=== PATIENT | female | born 1985 | race Caucasian/White ===

== ENCOUNTER 2023-01-30 00:13 | Inpatient (IN) | payer OTHER, SELFPAY ==
[2023-01-29 23:44] VITALS: TEMP 36.7
[2023-01-29 23:45] VITALS: BP 139/87; PULSE 81
[2023-01-29 23:47] VITALS: BMI 39.4
[2023-01-30] VITALS (37 sets, daily range): BP systolic 103–151; BP diastolic 56–85; PULSE 56–96; RESP 16; TEMP 36.2–36.8; O2SAT 96–98
[2023-01-30 00:05] LABS: Color, Urine Yellow (Yellow); Glucose, Dipstick Normal (Normal); Ketone-Dipstick Negative (Negative); Leukocyte Esterase-Dipstick 25 /ul (Negative); Nitrite-Dipstick Negative (Negative); Occult Blood-Urine 250 /ul (Negative); Protein-Dipstick 30 mg/dl (Negative); Urine Bilirubin Dipstick Negative (Negative); Urine Clarity Sl. Cloudy (Clear); Urine Urobilinogen Normal (Normal)
[2023-01-30 00:12] LABS: ROM Internal Control Test YES-OK TO RESULT pt. (Internal QC); ROM Patient Test POSITIVE (Negative); Record Kit Lot#, ROM+ K1374
[2023-01-30 01:17] LABS: Absolute Lymphocyte Count 2.47 X10^3/uL (0.83-4.51); Absolute Neutrophil Count 7.7 X10^3/uL (2.0-7.7); Basophil# 0.03 X10^3/uL; Basophil% 0.3 % (0-1); Eosinophils% 0.9 % (0-5); Hematocrit 38.9 % (37-47); Hemoglobin 12.4 g/dL (12.0-15.0); Lymphocyte # 2.47 X10^3/ul (0.83-4.51); Lymphocyte % 21.8 % (19-41); Mean Corp Hgb Conc 31.9 g/dL (32-36); Mean Corpuscular Hgb 30.5 pg (27.0-32.0); Mean Corpuscular Volume 95.8 fL (81-99); Mean Platelet Vol. 12.9 fl (6.2-12.0); Monocyte# 0.93 X10^3/uL; Monocyte% 8.2 % (0-10); NRBC Flagged by Analyzer 0 % (0-5); Neutrophil # 7.74 X10^3/uL (2.7-7.7); Neutrophil % 68.4 % (47-70); Platelet Count 188 K/mm3 (150-450); RBC Distribution Width CV 14.8 % (11.6-14.6); RBC Distribution Width SD 51.7 fl (35.1-43.9); Red Blood Count 4.06 M/mm3 (4.2-5.4); White Blood Count 11.3 K/mm3 (4.4-11.0)
[2023-01-30 02:12] LABS: Syphilis Antibodies Non-reactive
--- NOTE | 2023-01-30 08:15 | PCM.HP.OB ---
HPI - General General Date of Admission: 01/30/23 HPI Narrative GOPI MAGANA, is a 37 F @ 38.2 weeks who presents with SROM on 01/29/23 at 10pm clear fluid. [facility] Medical History (Updated 01/30/23 @ 08:[address] Gini Franco MD) Vaginal after Home Medications vits,calcium no.78-iron fumarate-folic acid 29 mg-1 mg tablet (Prenatabs FA) 1 tab PO DAILY vitamin 11/02/14 [History Last Taken 04/20/17 19:00 1 tab] sennosides 8.6 mg tablet (Mary-albert) 1 tab PO DAILY stool softener 11/02/14 [History Last Taken 04/20/17 19:00 1 tab] loratadine 10 mg tablet (Claritin) 10 mg PO PRN PRN Allergies 04/21/17 [History Last Taken 04/19/17 12:00 10 mg] omeprazole 20 mg capsule,delayed release 20 mg PO DAILY heartburn 04/21/17 [History Last Taken 04/20/17 19:00 20 mg] Allergy/AdvReac Type Severity Reaction Status Date / Time hydrocodone Allergy Itching Verified 01/30/23 00:50 Surgical History (Updated 01/30/23 @ 08:[address] Gini Franco MD) History of surgery Previous section Social History Smoking Status: Former smoker History Elective abortions Hx Para 2 Spontaneous abortions Hx # Term Pregnancies Ectopic pregnancies Hx # Pregnancies Multiple births # of living children Vital Signs Vital Signs Vital Signs: 01/29/23 23:44 01/29/23 23:45 01/29/23 23:45 Temperature Temperature Source Temporal Pulse Rate 81 Blood Pressure 139/87 H BP Systolic 139 BP Diastolic 87 01/29/23 23:44 01/30/23 01:45 01/30/23 01:45 Temperature 98.1 F 97.4 F L Temperature Source Temporal Pulse Rate Blood Pressure BP Systolic BP Diastolic 01/30/23 02:58 01/30/23 02:58 01/30/23 05:15 Temperature Temperature Source Temporal Pulse Rate 60 Blood Pressure 135/76 H BP Systolic 135 BP Diastolic 76 01/30/23 05:15 01/30/23 06:45 01/30/23 06:45 Temperature 97.2 F L Temperature Source Pulse Rate 56 L Blood Pressure 114/71 BP Systolic 114 BP Diastolic 71 01/30/23 06:45 01/30/23 06:45 Temperature 97.8 F Temperature Source Temporal Pulse Rate Blood Pressure BP Systolic BP Diastolic Weight Weight: 107.501 kg Body Mass Index (BMI) 39.4 Physical Exam Narrative VE 2/50/-2 Const alert and oriented x3 General Appearance: cooperative HEENT normocephalic GI GI Narrative: Gravid, non tender to palpation. OB / External & Speculum: external exam normal Extremity normal to inspection Skin no rashes or lesions noted Neuro oriented x3 and CN's II-XII intact bilaterally Psych Appearance: grossly normal Labs Labs Labs: Blood Type O POSITIVE Antibody Screen NEGATIVE Hct 38.9 % (37-47) Hgb 12.4 g/dL (12.0-15.0) Syphilis Total Ab Non-reactive Rhogam given: No Assessment & Plan (1) AMA (advanced maternal age) multigravida 35+: (2) Previous delivery affecting : (3) Vaginal delivery after previous delivery () declined: (4) Obesity affecting : (5) 38 weeks gestation of : (6) SROM (spontaneous rupture of membranes): (7) History of depression: PLAN: Plan Admit to L&D Mont[facility] FHR/TOCO Epidural if requested for pain Monitor VS Anticipate Pitocin for augmentation TOLAC- d/w [facility] Dr. Frankel agrees for back up today. EFW 7lb
[2023-01-30] MEDS: Lactated Ringers 1,000 ML 200 ML IV (08:30)
[2023-01-30] MEDS: Oxytocin 15 Units/NS 250ml 15 UNITS/250 ML IV.SOLN 2 UNITS IV (08:35)
[2023-01-30] MEDS: LACTATED RINGERS 500 ML 999 ML IV ×2 (09:25→11:20)
[2023-01-30] MEDS: fentaNYL-bupivacaine (epidural) 100 ML BAG EPIDURAL (10:12)
--- NOTE | 2023-01-30 13:37 | EX.PCM.OBRPT ---
Vaginal Delivery Maternal Presentation Maternal Presentation: Spontaneous Rupture of Membranes Operative Information Date of Procedure: 01/30/23 Pre-Operative Diagnosis: 38 weeks gestation, SROM, h/o , Obesity in , Post-Operative Diagnosis: same, live female infant Surgery / Procedure Performed: Type of Anesthesia: Epidural Drain: Mcguire to straight drain Estimated Blood Loss: 100 Time of Delivery: 13:20 Findings Description of Procedure: Patient progressed to fully dilated. Good maternal pushing efforts delivered the head, loose nuchal appreciated. The nuchal cord was reduced., followed by the anterior shoulder and the rest the 's body without complication. was vigorous at time of delivery and was placed on the mother's chest for immediate skin to skin. Delayed cord clamping was performed. Mouth and nose were suctioned. Cord was then clamped and cut. Pitocin was started and the placenta was then delivered spontaneously. The cord was very thin so precaution was taken to not avulses the cord during delivery of the placenta. Placenta appeared to be intact. No perineal or vaginal lacerations appreciated. Presentation: Vertex Amniotic Membrane Rupture Type: Spontaneous Amniotic Fluid Description: Clear Placental Delivery Description: Spontaneous Placenta Disposition: [facility] Cord Vessel Description: 3 Vessels Cord Entanglement: Around neck x 1, loose Infant A Gender: Female (1 minute): 7 (5 minute): 9 Delayed Cord Clamping: Yes Complication Complications: None
[2023-01-30] MEDS: Oxytocin 15 Units/NS 250ml 15 UNITS/250 ML IV.SOLN 83 UNITS IV (14:30)
[2023-01-30] MEDS: Ibuprofen 600 MG Tablet PO (21:17)
[2023-01-31 01:19] VITALS: BP 108/68; PULSE 67; RESP 16; TEMP 36.5; O2SAT 97
[2023-01-31 03:20] VITALS: BP 122/73; PULSE 69; RESP 16; O2SAT 97
[2023-01-31 08:15] VITALS: BP 118/67; PULSE 65; RESP 16; TEMP 36.1; O2SAT 98
--- NOTE | 2023-01-31 08:22 | PCM.PROGNOTE ---
Subjective Subjective patient seen at bedside, doing well. Patient reports good pain control. lochia mild. Objective Data Objective Data Vital Signs: Vital Signs Temp Pulse Resp BP Pulse Ox O2 Del Method 97.7 F L 69 16 122/73 H 97 Room Air 01/31/23 01:19 01/31/23 03:20 01/31/23 03:20 01/31/23 03:20 01/31/23 03:20 01/31/23 03:20 Oxygen Delivery Method Room Air Weight: 107.501 kg Body Mass Index (BMI) 39.4 Intake & Output: Intake and Output for Last 24 Hours 01/29/23 01/30/23 01/31/23 23:59 23:59 23:59 Intake Total 2429.00 / 2429.00 Output Total 1600 / 1600 Balance 829.00 / 829.00 Lab / Micro Data 01/30/23 01:00 Physical Exam Const alert and oriented x3 General Appearance: cooperative HEENT normocephalic Neck General: normal visual inspection GI soft to palpation and non-distended GI Narrative: Fundus firm Extremity normal to inspection and no calf tenderness Skin no rashes or lesions noted Neuro oriented x3 and CN's II-XII intact bilaterally Psych mental status grossly normal Assessment & Plan Assessment/Plan (1) Vaginal after : PLAN: Plan PPD#1 , Doing well Routine care pain mgmt ambulation dc home
--- NOTE | 2023-01-31 08:23 | DCINST_ITS ---
Discharge Instructions Diet Discharge Diet: No restrictions Activity May resume sexual activity in: 6-8 weeks Dressing / Incision Call your doctor if you observe: Fever of 101 or Higher, Inability to urinate, Using more than 1 pad per hour and Uncontrolled pain Follow Up Care Please Follow Up With: Gini Franco MD When: 1-2 weeks post and again at 6 weeks post . [phone] Test Results: Test results from this visit will be discussed in further detail at your follow- up appointment, if applicable. Discharge Plan Admission Admit Date/Time: 01/30/23 00:13 Attending Provider: Maryanne Page Primary Care Provider: Care PhysicianDella Primary Discharge Orders/Prescriptions Prescriptions: New acetaminophen 500 mg Tablet 500 - 1,000 mg PO Q6H PRN PRN (Reason: Pain Score 1-3) Qty: 0 0RF ibuprofen 600 mg Tablet 600 mg PO Q6H PRN PRN (Reason: Pain Score 1-3) Qty: 0 0RF Continued sennosides [Mary-albert] 1 TABLET tablet 1 tab PO DAILY vit,[id number] [Prenatabs FA] 1 TABLET tablet 1 tab PO DAILY omeprazole 20 MG capsule 20 mg PO DAILY loratadine [Claritin] 10 MG tablet 10 mg PO PRN PRN (Reason: Allergies) Referrals / Follow Up: Care Physician,Della Primary [Primary Care Provider] - Disposition Disposition (needs filled in before D/C Order can be placed): Home, Self Care
[2023-01-31] MEDS: Senna/Docusate Sodium 1 Tablet PO (08:26)
[2023-01-31] MEDS: Ibuprofen 600 MG Tablet PO (08:27)
[2023-01-31 12:10] VITALS: BP 128/71; PULSE 63; RESP 16; TEMP 36.9; O2SAT 98
== END 2023-01-31 15:00 | disposition home or self-care (01) | DRG 807 ==
LOC: WPOUT 00:14 → WP 00:14
PROVIDERS: Admitting Provider Obstetrics & Gynecology; Referring Provider Obstetrics & Gynecology; Visit Provider Obstetrics & Gynecology
DX: O34.219 Maternal care for unspecified type scar from previous cesarean delivery (principal); Z37.0 Single live birth; O69.81X0 Labor and delivery complicated by cord around neck, without compression, not applicable or unspecified; Z3A.38 38 weeks gestation of pregnancy; Z87.891 Personal history of nicotine dependence
CPT/HCPCS: 59025; 59050; 81002; 84112; 85025; 86780; 86850; 86900; 86901; 99221; J7120; G0378